=== PATIENT | female | born 2000 ===

== ENCOUNTER → 2024-03-08 | Outpatient (CLI) | payer OTHER ==
[2024-03-08 13:25] LABS: Source, Urine Clean Catch
[2024-03-08 14:48] LABS: Bilirubin, Urine Neg (Neg); Blood, Urine Neg (Neg); Glucose Qualitative, Urine Neg (Neg); Ketones, Urine Neg (Neg); Leukocyte Esterase, Urine 1+ (Neg); Nitrite, Urine Neg (Neg); Protein, Urine 1+ (Neg); Urobilinogen, Urine NORM (Normal)
[2024-03-08 14:56] LABS: Appearance, Urine Clear (Clear); Color, Urine Pale Yellow (P-Yellow)
[2024-03-08 14:57] LABS: Bacteria Many /hpf; Red Blood Cells, Urine 0-2 /hpf (0-2); Squamous Epithelial Cells Mod /hpf (Few)
[2024-03-08 15:17] LABS: BASOPHILS ABSOLUTE AUTO 0.02 K/mm3 (0.00-0.23); BASOPHILS PERCENT AUTO 0 % (0-2); EOSINOPHILS ABSOLUTE AUTO 0.09 K/mm3 (0.00-0.68); EOSINOPHILS PERCENT AUTO 1 % (0-6); Hematocrit 28.8 % (33.0-51.0); Hemoglobin 9.1 g/dL (11.5-16.0); IMMATURE GRAN ABSOLUTE AUTO 0.05 K/mm3 (0.00-0.10); IMMATURE GRAN PERCENT AUTO 1 % (0-1); LYMPHOCYTES ABSOLUTE AUTO 1.35 K/mm3 (0.84-5.20); LYMPHOCYTES PERCENT AUTO 13 % (21-46); MONOCYTES ABSOLUTE AUTO 0.47 K/mm3 (0.16-1.47); MONOCYTES PERCENT AUTO 5 % (4-13); Mean Corpuscular HGB 25.6 pg (26.0-34.0); Mean Corpuscular HGB Conc 31.6 g/dL (31.5-36.5); Mean Corpuscular Volume 81 fL (80-100); Mean Platelet Volume 10.1 fL (9.1-12.4); NEUTROPHILS ABSOLUTE AUTO 8.23 K/mm3 (1.96-9.15); NEUTROPHILS PERCENT AUTO 81 % (41-73); Platelet Count 327 K/mm3 (150-400); RDW Coefficient Variation 16.1 % (11.7-14.2); RDW Standard Deviation 47.4 fL (35.1-46.3); Red Blood Cell Count 3.56 M/mm3 (3.80-5.20); White Blood Cell Count 10.21 K/mm3 (4.00-11.30)
[2024-03-09 15:22] LABS: HEPATITIS B SURFACE ANTIGEN Negative (Negative)
[2024-03-09 17:18] LABS: HEPATITIS C AB CIA INTERP Negative (Negative); HEPATITIS C ANTIBODY CIA INDEX <0.02 IV
[2024-03-10 12:34] LABS: HIV 1,2 COMBO ANTIGEN/ANTIBODY Negative (Negative)
== END | disposition home or self-care (01) ==
LOC: LAB SHORT 13:22 → LAB 13:22
PROVIDERS: Registered Nurse Community Health
DX: Z34.91 Encounter for supervision of normal pregnancy, unspecified, first trimester (principal)
CPT/HCPCS: 81001; 83036; 84443; 86803; 87086; 87147; 87340; 87389

== ENCOUNTER → 2024-03-09 | Outpatient (CLI) | payer OTHER ==
[2024-03-09 15:02] LABS: Percent Saturation 5.6 % (15.0-50.0)
[2024-03-11 06:32] LABS: APTIMA MEDIA TYPE Urine; C. TRACHOMATIS BY TMA Negative (Negative); N. GONORRHOEAE BY TMA Negative (Negative); SPECIMEN SOURCE Urine
== END ==
LOC: LAB 13:18 → LAB SHORT 13:18
PROVIDERS: Registered Nurse Community Health
DX: O99.013 Anemia complicating pregnancy, third trimester (principal); Z3A.00 Weeks of gestation of pregnancy not specified
CPT/HCPCS: 82728; 82950; 83540; 83550; 87491; 87591

== ENCOUNTER 2024-03-19 07:36 | Day surgery (SDC) | payer OTHER ==
[~2024-03-19 07:36] MED LIST: Sod Ferric Gluc Complx/Sucrose 125 MG in NS 100 ML IV SCH
[2024-03-19 07:40] VITALS: BP 109/70
== END 2024-03-19 08:46 | disposition home or self-care (01) ==
LOC: ATC 07:36
DX: O99.013 Anemia complicating pregnancy, third trimester (principal); D50.9 Iron deficiency anemia, unspecified
CPT/HCPCS: 96365; J2916

== ENCOUNTER 2024-03-23 04:47 | Day surgery (SDC) | payer OTHER ==
[2024-03-23 09:09] VITALS: BP 104/62
== END 2024-03-23 10:17 | disposition home or self-care (01) ==
LOC: ATC 04:47
DX: O99.013 Anemia complicating pregnancy, third trimester (principal); D50.9 Iron deficiency anemia, unspecified
CPT/HCPCS: 96365; J2916

== ENCOUNTER 2024-04-01 00:53 | Day surgery (SDC) | payer OTHER ==
[2024-04-01] MEDS ORDERED: Sod Ferric Gluc Complx/Sucrose 125 MG in NS 100 ML IV SCH (01:00)
[2024-04-01 09:03] VITALS: BP 99/62
== END 2024-04-01 10:10 | disposition home or self-care (01) ==
LOC: ATC 00:53
DX: O99.013 Anemia complicating pregnancy, third trimester (principal); D50.9 Iron deficiency anemia, unspecified
CPT/HCPCS: 96365; J2916

== ENCOUNTER 2024-04-24 00:41 | Inpatient (IN) | payer OTHER ==
[~2024-04-24] VITALS: Ht 149.9 cm; Wt 55.0 kg
[2024-04-24 00:52] VITALS: BP 119/69
[2024-04-24] MEDS ORDERED: OXYTOCIN/RINGER'S LACTATE 500 ML IV PRN (02:30)
[2024-04-24] MEDS ORDERED: Misoprostol 200 MCG Tab PR PRN (02:30)
[2024-04-24] MEDS ORDERED: Acetaminophen 500 MG Tab PO PRN (02:30)
[2024-04-24] MEDS ORDERED: Methylergonovine Maleate 0.2MG / ML 1ML Amp IM PRN (02:30)
[2024-04-24] MEDS ORDERED: ePHEDrine Sulfate 50 MG/ML 1ML Injection XX PRN (02:30)
[2024-04-24] MEDS ORDERED: Ondansetron HCl 2 MG / ML 2ML Vial IV PRN (02:30)
[2024-04-24] MEDS ORDERED: Carboprost Tromethamine 250 MCG/ML 1ML Amp IM PRN (02:30)
[2024-04-24] MEDS ORDERED: Lactated Ringer's 1,000 ML IV PRN ×3 (02:30)
[2024-04-24] MEDS ORDERED: Misoprostol 200 MCG Tab BC PRN (02:30)
[2024-04-24] MEDS ORDERED: Oxytocin 10 Unit / ML Vial IM PRN (02:30)
[2024-04-24] MEDS ORDERED: Tranexamic Acid 1,000 MG in NS 100 ML IV SCH (02:30)
[2024-04-24] MEDS ORDERED: FentaNYL 2mcg/ml-Bup 0.1% Epd 250 ML EPI PRN (02:30)
[2024-04-24] MEDS ORDERED: Calcium Carbonate 500 MG Tab Chew PO PRN (02:35)
[2024-04-24] MEDS ORDERED: FentaNYL Citrate 50 MCG/ML 2 ML Injection IV PRN (02:40)
[2024-04-24 03:18] LABS: BASOPHILS ABSOLUTE AUTO 0.02 K/mm3 (0.00-0.23); BASOPHILS PERCENT AUTO 0 % (0-2); EOSINOPHILS ABSOLUTE AUTO 0.14 K/mm3 (0.00-0.68); EOSINOPHILS PERCENT AUTO 2 % (0-6); Hematocrit 32.2 % (33.0-51.0); Hemoglobin 10.4 g/dL (11.5-16.0); IMMATURE GRAN ABSOLUTE AUTO 0.03 K/mm3 (0.00-0.10); IMMATURE GRAN PERCENT AUTO 0 % (0-1); LYMPHOCYTES ABSOLUTE AUTO 1.17 K/mm3 (0.84-5.20); LYMPHOCYTES PERCENT AUTO 13 % (21-46); MONOCYTES PERCENT AUTO 7 % (4-13); Mean Corpuscular HGB 26.1 pg (26.0-34.0); Mean Corpuscular HGB Conc 32.3 g/dL (31.5-36.5); Mean Corpuscular Volume 81 fL (80-100); Mean Platelet Volume 11.2 fL (9.1-12.4); NEUTROPHILS ABSOLUTE AUTO 7.12 K/mm3 (1.96-9.15); NEUTROPHILS PERCENT AUTO 79 % (41-73); Platelet Count 169 K/mm3 (150-400); RDW Coefficient Variation 20.3 % (11.7-14.2); RDW Standard Deviation 60.2 fL (35.1-46.3); Red Blood Cell Count 3.99 M/mm3 (3.80-5.20); White Blood Cell Count 9.08 K/mm3 (4.00-11.30)
[2024-04-24] MEDS ORDERED: Penicillin G Potassium 5,000,000 UNITS in NS 250 ML IV ONE (04:00)
[2024-04-24 04:53] VITALS: BP 112/67
[2024-04-24 07:36] VITALS: BP 99/61
[2024-04-24] MEDS ORDERED: Penicillin G Potassium 2,500,000 UNITS in Dextrose 5% 100 ML IV SCH (08:00)
[2024-04-24] MEDS ORDERED: DEXTROMETHORPHAN/BENZOCAINE 1 EACH LOZENGE MT PRN (08:15)
[2024-04-24 09:51] LABS: Influenza A, PCR NEGATIVE (NEGATIVE); Influenza B, PCR NEGATIVE (NEGATIVE); Resp Syncytial Virus, PCR NEGATIVE (NEGATIVE); SARS-Cov-2 (COVID-19) PCR, MMC NEGATIVE (NEGATIVE)
[2024-04-24 12:24] VITALS: BP 102/58
[2024-04-24 14:27] VITALS: BP 109/67
--- NOTE | 2024-04-24 14:42 | NUR ---
PT D/C HOME. REVIEWED D/C INSTRUCTIONS WITH PATIENT AND FAMILY USING LALI BERUMEN Wilver CERTIFIED [facility]PER[employer]. PT DOES NOT HAVE QUESTIONS AT THIS TIME AND IS COMFORTABLE GOING HOME.
== END 2024-04-24 14:35 | disposition home or self-care (01) | DRG 833 ==
LOC: BC 00:41 → OBS 00:41 → BC 00:43 → OBS 02:37 → BC 02:39
PROVIDERS: ADMIT Registered Nurse Community Health
DX: O60.03 Preterm labor without delivery, third trimester (principal); Z3A.36 36 weeks gestation of pregnancy
CPT/HCPCS: 0241U; 59025; 81003; 85025; 86850; 86900; 86901; 87081; 87150; 99214; A9270; J2540; J7050; J7120

== ENCOUNTER 2024-05-05 01:38 | Inpatient (IN) | payer OTHER ==
[2024-05-05] VITALS (14 sets, daily range): BP systolic 91–120; BP diastolic 52–75
[~2024-05-05] VITALS: Ht 149.9 cm; Wt 57.7 kg
[2024-05-05] MEDS ORDERED: Misoprostol 200 MCG Tab PR PRN ×2 (01:55→05:25)
[2024-05-05] MEDS ORDERED: Methylergonovine Maleate 0.2MG / ML 1ML Amp IM PRN ×2 (01:55→05:25)
[2024-05-05] MEDS ORDERED: FentaNYL 2mcg/ml-Bup 0.1% Epd 250 ML EPI PRN (01:55)
[2024-05-05] MEDS ORDERED: Penicillin G Potassium 5,000,000 UNITS in NS 250 ML IV ONE (01:55)
[2024-05-05] MEDS ORDERED: Tranexamic Acid 100 ML IV SCH (01:55)
[2024-05-05] MEDS ORDERED: Carboprost Tromethamine 250 MCG/ML 1ML Amp IM PRN (01:55)
[2024-05-05] MEDS ORDERED: Lactated Ringer's 1,000 ML IV PRN ×3 (01:55→02:00)
[2024-05-05] MEDS ORDERED: OXYTOCIN/RINGER'S LACTATE 500 ML IV PRN (01:55)
[2024-05-05] MEDS ORDERED: ePHEDrine Sulfate 50 MG/ML 1ML Injection XX PRN (01:55)
[2024-05-05] MEDS ORDERED: Misoprostol 200 MCG Tab BC PRN (01:55)
[2024-05-05] MEDS ORDERED: Oxytocin 10 Unit / ML Vial IM PRN (01:55)
[2024-05-05] MEDS ORDERED: Ondansetron HCl 2 MG / ML 2ML Vial IV PRN (02:00)
[2024-05-05] MEDS ORDERED: Acetaminophen 500 MG Tab PO PRN (02:00)
[2024-05-05] MEDS ORDERED: Calcium Carbonate 500 MG Tab Chew PO PRN (02:00)
[2024-05-05] MEDS ORDERED: FentaNYL Citrate 50 MCG/ML 2 ML Injection IV PRN (02:05)
[2024-05-05 02:13] LABS: BASOPHILS ABSOLUTE AUTO 0.02 K/mm3 (0.00-0.23); BASOPHILS PERCENT AUTO 0 % (0-2); EOSINOPHILS ABSOLUTE AUTO 0.07 K/mm3 (0.00-0.68); EOSINOPHILS PERCENT AUTO 1 % (0-6); Hematocrit 30.5 % (33.0-51.0); Hemoglobin 10.1 g/dL (11.5-16.0); IMMATURE GRAN ABSOLUTE AUTO 0.05 K/mm3 (0.00-0.10); IMMATURE GRAN PERCENT AUTO 1 % (0-1); LYMPHOCYTES ABSOLUTE AUTO 1.27 K/mm3 (0.84-5.20); LYMPHOCYTES PERCENT AUTO 13 % (21-46); MONOCYTES ABSOLUTE AUTO 0.55 K/mm3 (0.16-1.47); MONOCYTES PERCENT AUTO 6 % (4-13); Mean Corpuscular HGB Conc 33.1 g/dL (31.5-36.5); Mean Corpuscular Volume 79 fL (80-100); NEUTROPHILS ABSOLUTE AUTO 7.86 K/mm3 (1.96-9.15); NEUTROPHILS PERCENT AUTO 80 % (41-73); Platelet Count 185 K/mm3 (150-400); RDW Standard Deviation 58.1 fL (35.1-46.3); Red Blood Cell Count 3.88 M/mm3 (3.80-5.20); White Blood Cell Count 9.82 K/mm3 (4.00-11.30)
[2024-05-05] MEDS ORDERED: Benzocaine Topical Anesthetic Spray 60GM TOP PRN (05:20)
[2024-05-05] MEDS ORDERED: Acetaminophen/Codeine 300-30 mg PO PRN (05:20)
[2024-05-05] MEDS ORDERED: Ketorolac Tromethamine 30mg Vial IV PRN (05:20)
[2024-05-05] MEDS ORDERED: Acetaminophen 325 MG TABLET PO PRN (05:20)
[2024-05-05] MEDS ORDERED: Witch Hazel/Glycerin PADS TOP PRN (05:20)
[2024-05-05] MEDS ORDERED: Ibuprofen 400 MG Tab PO PRN (05:20)
[2024-05-05] MEDS ORDERED: Lactated Ringer's 1,000 ML IV SCH (05:25)
[2024-05-05] MEDS ORDERED: Oxytocin 10 Unit / ML Vial IM ONE (05:25)
[2024-05-05] MEDS ORDERED: Lanolin Cream TOP PRN (05:25)
[2024-05-05] MEDS ORDERED: FLU VACC TS2024-25(6MOS UP)/PF 45 MCG/0.5 ML SYRINGE IM ONE (05:25)
[2024-05-05] MEDS ORDERED: Docusate Sodium 100 MG Cap PO PRN (05:25)
[2024-05-05] MEDS ORDERED: OXYTOCIN/RINGER'S LACTATE 500 ML IV SCH (05:30)
--- NOTE | 2024-05-05 06:24 | NUR ---
PATIENT DECLINING TAKING A SHOWER 2 HOURS AFTER DELIVERY. STATES SHE WOULD LIKE TO SLEEP.
[2024-05-05] MEDS ORDERED: Penicillin G Potassium 2,500,000 UNITS in Dextrose 5% 100 ML IV SCH (06:30)
[2024-05-05] MEDS ORDERED: Prenatal Vit/FE Fumarate/FA 1 Tab PO SCH (09:00)
[2024-05-06 00:44] VITALS: BP 98/54
[2024-05-06 04:40] VITALS: BP 90/51
[2024-05-06 07:19] LABS: BASOPHILS ABSOLUTE AUTO 0.03 K/mm3 (0.00-0.23); BASOPHILS PERCENT AUTO 0 % (0-2); EOSINOPHILS ABSOLUTE AUTO 0.06 K/mm3 (0.00-0.68); EOSINOPHILS PERCENT AUTO 0 % (0-6); Hematocrit 24.4 % (33.0-51.0); IMMATURE GRAN ABSOLUTE AUTO 0.08 K/mm3 (0.00-0.10); IMMATURE GRAN PERCENT AUTO 1 % (0-1); LYMPHOCYTES ABSOLUTE AUTO 1.72 K/mm3 (0.84-5.20); LYMPHOCYTES PERCENT AUTO 13 % (21-46); MONOCYTES ABSOLUTE AUTO 0.66 K/mm3 (0.16-1.47); MONOCYTES PERCENT AUTO 5 % (4-13); Mean Corpuscular HGB 26.8 pg (26.0-34.0); Mean Corpuscular HGB Conc 32.8 g/dL (31.5-36.5); Mean Corpuscular Volume 82 fL (80-100); Mean Platelet Volume 11.1 fL (9.1-12.4); NEUTROPHILS ABSOLUTE AUTO 10.92 K/mm3 (1.96-9.15); NEUTROPHILS PERCENT AUTO 81 % (41-73); Platelet Count 165 K/mm3 (150-400); RDW Coefficient Variation 20.5 % (11.7-14.2); RDW Standard Deviation 60.8 fL (35.1-46.3); Red Blood Cell Count 2.99 M/mm3 (3.80-5.20); White Blood Cell Count 13.47 K/mm3 (4.00-11.30)
[2024-05-06 08:20] VITALS: BP 109/66
[2024-05-06] MEDS ORDERED: Sod Ferric Gluc Complx/Sucrose 125 MG in NS 100 ML IV ONE (08:30)
[2024-05-06 12:37] VITALS: BP 99/55
[2024-05-06 16:36] VITALS: BP 103/55
== END 2024-05-06 16:50 | disposition home or self-care (01) | DRG 807 ==
LOC: OBS 01:38 → BC 01:44 → OBS 02:07 → BC 02:08
PROVIDERS: Family Medicine; ADMIT Registered Nurse Community Health
PROC: 10E0XZZ Delivery of Products of Conception, External Approach (ICD-10-PCS; principal; 2024-05-05)
PROC: 0HQ9XZZ Repair Perineum Skin, External Approach (ICD-10-PCS; 2024-05-05)
DX: O70.0 First degree perineal laceration during delivery (principal); Z37.0 Single live birth; Z3A.37 37 weeks gestation of pregnancy
CPT/HCPCS: 36415; 85025; 86850; 86900; 86901; A9270; J1885; J2405; J2540; J2916; J7050

== ENCOUNTER 2024-07-05 01:13 | Emergency (ER) | payer OTHER ==
[~2024-07-05] VITALS: Ht 152.4 cm; Wt 46.7 kg
[2024-07-05] MEDS ORDERED: NS 1,000 ML IV SCH (02:15)
[2024-07-05] MEDS ORDERED: Pantoprazole Sodium 40 MG Injection IV ONE (02:15)
[2024-07-05] MEDS ORDERED: Ondansetron HCl 2 MG / ML 2ML Vial IV ONE (02:15)
[2024-07-05 02:20] LABS: BASOPHILS ABSOLUTE AUTO 0.03 K/mm3 (0.00-0.23); BASOPHILS PERCENT AUTO 0 % (0-2); EOSINOPHILS ABSOLUTE AUTO 0.22 K/mm3 (0.00-0.68); EOSINOPHILS PERCENT AUTO 3 % (0-6); Hematocrit 39.5 % (33.0-51.0); IMMATURE GRAN ABSOLUTE AUTO 0.01 K/mm3 (0.00-0.10); IMMATURE GRAN PERCENT AUTO 0 % (0-1); LYMPHOCYTES ABSOLUTE AUTO 2.56 K/mm3 (0.84-5.20); LYMPHOCYTES PERCENT AUTO 33 % (21-46); MONOCYTES ABSOLUTE AUTO 0.53 K/mm3 (0.16-1.47); MONOCYTES PERCENT AUTO 7 % (4-13); Mean Corpuscular HGB 27.4 pg (26.0-34.0); Mean Corpuscular HGB Conc 32.9 g/dL (31.5-36.5); Mean Corpuscular Volume 83 fL (80-100); Mean Platelet Volume 9.7 fL (9.1-12.4); NEUTROPHILS PERCENT AUTO 57 % (41-73); Platelet Count 166 K/mm3 (150-400); RDW Coefficient Variation 16.5 % (11.7-14.2); Red Blood Cell Count 4.75 M/mm3 (3.80-5.20); White Blood Cell Count 7.85 K/mm3 (4.00-11.30)
[2024-07-05 02:32] LABS: Albumin, Blood 4.2 g/dL (3.4-5.0); Albumin/Globulin Ratio 1.2 (0.8-1.8); Bilirubin, Total 0.3 mg/dL (0.1-1.0); Bun/Creatinine Ratio 23.6 (12.0-20.0); Calcium, Blood 9.6 mg/dL (8.5-10.1); Creatinine, Blood 0.55 mg/dL (0.40-1.00); Globulin, Blood 3.6 g/dL (2.2-4.0); Potassium, Blood 3.5 mmol/L (3.5-5.5); Total Protein, Blood 7.8 g/dL (6.4-8.2)
[2024-07-05 02:43] LABS: Source, Urine Clean Catch
[2024-07-05 02:49] LABS: Bilirubin, Urine Neg (Neg); Blood, Urine Neg (Neg); Glucose Qualitative, Urine Neg (Neg); Ketones, Urine Neg (Neg); Leukocyte Esterase, Urine 2+ (Neg); Nitrite, Urine Neg (Neg); Protein, Urine Neg (Neg); Urobilinogen, Urine NORM (Normal)
[2024-07-05 02:55] LABS: Appearance, Urine Clear (Clear); Color, Urine Yellow (P-Yellow)
[2024-07-05 02:56] LABS: Bacteria Few /hpf; Red Blood Cells, Urine Not Seen /hpf (0-2); Squamous Epithelial Cells Few /hpf (Few)
[2024-07-05] MEDS ORDERED: RX Prepack 2 Tabs Ondansetron ODT 4MG UD ONE (06:00)
[2024-07-05] MEDS ORDERED: CEFD300 PO (06:06)
[2024-07-05] MEDS ORDERED: ONDA4ODT MM (06:06)
== END 2024-07-05 06:27 | disposition home or self-care (01) ==
LOC: ER 01:13
PROVIDERS: Student in an Organized Health Care Education/Training Program
DX: N39.0 Urinary tract infection, site not specified (principal)
CPT/HCPCS: 74177; 76856; 80053; 81001; 81025; 83690; 85025; 87086; 93005; 93010; 96374-59; 96375; 99284-25; A9270; J2405; J2470; J7030; Q9967